=== PATIENT | male | born 1990 | race Caucasian/White ===

== ENCOUNTER 2017-06-19 14:24 | Emergency (ER) | payer BC, OTHER ==
[2017-06-19 14:44] VITALS: BP 112/72; PULSE 82; RESP 18; TEMP 97.5
[2017-06-19] MEDS ORDERED: PROPARACAINE 0.5% OPHTH DROPS 15 ML BTL LEFT EYE STA (14:45)
--- NOTE | 2017-06-19 15:30 | ED ---
Eye Problem HPI - General Chief complaint: Eye Problems Stated complaint: foreign body to lt eye Time Seen by Provider: 06/19/17 14:57 Source: patient, RN notes reviewed Mode of arrival: ambulatory Limitations: no limitations - History of Present Illness Initial comments: This is a 27-year-old male who presents to the emergency department with chief complaint of possible foreign body in the left eye. Patient states that prior to arrival he was grinding metal at work and felt a piece of something fly into his left eye. He complains of foreign body sensation, burning and tearing. He states that when he blinks he can feel something in his eye. Denies contact lens use. He states that vision in both eyes is slightly blurry. Patient does state that his right eye also feels "scratchy." Denies any other injuries or trauma. Denies fever, chills, chest pain, shortness of breath, abdominal pain, nausea or vomiting, constipation or diarrhea, dysuria or hematuria, numbness or tingling, headache or dizziness. - Related Data Previous Rx's Medication Instructions Recorded Cephalexin [Keflex] 250 mg PO Q6HR 7 Days day 09/04/13 Ciprofloxacin Ophth Soln [Cipro 1 - 2 drops BOTH EYES DIRECTED 06/19/17 0.3% Ophth Soln] #1 bottle Allergies Allergy/AdvReac Type Severity Reaction Status Date / Time No Known Allergies Allergy Verified 06/19/17 14:44 Review of Systems ROS Statement: Those systems with pertinent positive or pertinent negative responses have been documented in the HPI. ROS Other: All systems not noted in ROS Statement are negative. Past Medical History Past Medical History: No Reported History History of Any Multi-Drug Resistant Organisms: None Reported Additional Past Surgical History / Comment(s): EYE, KNEE Past Psychological History: No Psychological Hx Reported Smoking Status: Current every day smoker Past Alcohol Use History: Occasional Past Drug Use History: None Reported General Exam - General Exam Comments Initial Comments: General: Awake and alert, well-developed; in no apparent distress. HEENT: Head atraumatic, normocephalic. Pupils are equal, round and reactive to light. Extraocular movements intact. There is a small metal foreign body noted at approximately 6:00 in relation to the left iris. Left conjunctiva is injected. On fluorescein staining, there is a small corneal abrasion at 6:00. There is also a small corneal abrasion at approximately 4:00 in relation to the iris of the right eye. No foreign bodies noted under bilateral upper or lower eyelids. Negative Juan's test. Oropharynx moist without erythema or exudate. Neck: Supple. Normal ROM. Cardiovascular: Regular rate and rhythm. No murmurs, rubs or gallops. Chest symmetrical. Respiratory: Lungs clear to auscultation bilaterally. No wheezes, rales or rhonchi. Normal respiratory effort with no use of accessory muscles. Musculoskeletal: Normal ROM, no tenderness bilateral upper and lower extremities. Ambulating normally. Skin: Nordic, warm and dry without rashes or lesions. Neurological: Alert and oriented x3. CN II-XII grossly intact. Speech is fluent and answers are appropriate. No focal neuro deficits. Psychiatric: Normal mood and affect. No overt signs of depression or anxiety noted. Limitations: no limitations Course Vital Signs 06/19/17 14:42 Temperature 97.5 F L Pulse Rate 82 Respiratory 18 Rate Blood Pressure 112/72 O2 Sat by Pulse 100 Oximetry Medical Decision Making - Medical Decision Making This is a 27-year-old male presenting to the emergency department with chief complaint of foreign body in the left eye. A small metal foreign body was noted on the cornea of the left eye. This was easily removed with the tip of a cotton swabs. With fluorescein staining, there was noted to be a small corneal abrasion. There is also noted to be a very small rust ring. At this time, the jacquie tool is not available. Patient will be referred to ophthalmology for further evaluation and treatment. He is to follow-up as soon as possible. Contact information will be provided. No foreign body noted under bilateral upper and lower eyelids. Patient also complained of scratchiness to the right eye. Right eye was stained and there was noted to be another small corneal abrasion at approximately 4 o'clock in relation to the iris. Patient denies contact lens use. He will be started on ciprofloxacin antibiotic eyedrops. Patient's vital signs are stable and he is in no acute distress. He will be discharged home. He is in agreement with plan and voices understanding. All questions were answered. Disposition Clinical Impression: Corneal abrasion, Corneal foreign body Disposition: HOME SELF-CARE Condition: Good Instructions: Corneal Abrasion (ED), Eye Foreign Body (ED) Additional Instructions: Please follow-up with Dr. Delgado, ophthalmology within 1-2 days. Please apply ciprofloxacin eye drops to both eyes as directed: 1-2 drops every 2-4 hours 2 days then 1-2 drops every 6 hours 5 days. Please follow up with primary care provider within 1-2 days. Return to emergency department if symptoms should worsen or any concerns arise. Prescriptions: Ciprofloxacin Ophth Soln [Cipro 0.3% Ophth Soln] 1 - 2 drops BOTH EYES DIRECTED #1 bottle Referrals: Jefry Ortiz MD [Primary Care Provider] - 1-2 days Rafa Delgado MD [STAFF PHYSICIAN] - 1-2 days Time of Disposition: 15:54
[2017-06-19] MEDS ORDERED: CIPROFLOXACIN 0.3% OPHTH SOLN 5 ML BTL BOTH EYES STA (15:46)
== END 2017-06-19 16:08 | disposition home or self-care (01) ==
LOC: EC 14:24
DX: T15.02XA Foreign body in cornea, left eye, initial encounter (principal); F17.200 Nicotine dependence, unspecified, uncomplicated; Y99.0 Civilian activity done for income or pay; Y92.69 Other specified industrial and construction area as the place of occurrence of the external cause
CPT/HCPCS: 99283